=== PATIENT | female | born 1955 | race African-American/Black ===

== ENCOUNTER 2020-11-12 00:58 | Inpatient (IN) | payer OTHER ==
[~2020-11-12] VITALS: Ht 170.2 cm; Wt 89.4 kg
[~2020-11-12 00:58] MED LIST: IBUP-1957; LISI-768; LISI5TAB24 PO
--- NOTE | 2020-11-12 00:59 | NUR ---
PT AAOX4. 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 PLACED IN BED 2 ON MONITOR AND PULSE OX. AWAITING ER MD FOR EVAL AND ORDERS.
[2020-11-12 01:22] LABS: BASOPHILS # (AUTO) 0.1 K/uL (0.0-0.2); BASOPHILS % (AUTO) 1.1 % (0.0-2.0); EOSINOPHILS % (AUTO) 1.5 % (0.0-6.0); HEMATOCRIT 44 % (33-45); HEMOGLOBIN 14.2 g/dL (11.5-14.8); LYMPHOCYTES # (AUTO) 2.4 K/uL (0.8-4.8); LYMPHOCYTES % (AUTO) 44.9 % (20.0-44.0); MEAN CORPUSCULAR HGB CONC 32 g/dl (31.0-36.0); MEAN CORPUSCULAR VOLUME 87 fL (82-100); MONOCYTES # (AUTO) 0.7 K/uL (0.1-1.30); MONOCYTES % (AUTO) 12.8 % (2.0-12.0); NEUTROPHILS # (AUTO) 2.2 K/uL (1.8-8.9); NEUTROPHILS % (AUTO) 39.7 % (43.0-81.0); PLATELET COUNT (AUTO) 301 K/uL (150-450); RED BLOOD CELL COUNT(AUTO) 5.05 MIL/uL (4.0-5.2); WHITE BLOOD COUNT (AUTO) 5.4 K/uL (4.3-11.0)
--- NOTE | 2020-11-12 01:22 | NUR ---
BLOOD WORK COLLECTED, SENT TO LAB.
--- NOTE | 2020-11-12 01:28 | NUR ---
PT WAS TAKEN TO CT
[2020-11-12 01:40] LABS: CALCIUM, SERUM 8.8 mg/dL (8.5-10.1); CARBON DIOXIDE 26 mmol/L (21-32); CHLORIDE 106 mmol/L (98-107); CREATININE 1.1 mg/dL (0.6-1.3); GLUCOSE 115 mg/dL (74-106); POTASSIUM 3.6 mmol/L (3.5-5.1); SODIUM SERUM 141 mmol/L (136-145); UREA NITROGEN, BLOOD 15 mg/dL (7-18)
--- NOTE | 2020-11-12 01:42 | NUR ---
BACK FROM CT
[2020-11-12 01:45] LABS: ALANINE AMINOTRANSFERASE 17 U/L (12-78); ALBUMIN 3.5 g/dL (3.4-5.0); ALKALINE PHOSPHATASE 93 U/L (46-116); ASPARTATE AMINOTRANSFERASE 16 U/L (15-37); BILIRUBIN,DIRECT 0.1 mg/dL (0.0-0.2); BILIRUBIN,TOTAL 0.3 mg/dL (0.2-1.0); TOTAL PROTEIN, SERUM 7.6 g/dL (6.4-8.2)
[2020-11-12 01:47] LABS: CHOLESTEROL 219 mg/dL (<200); HDL CHOLESTEROL 57 mg/dL (40-60); LDL 135 mg/dL (0-99); TRIGLYCERIDES 103 mg/dL (30-150)
--- NOTE | 2020-11-12 02:24 | NUR ---
COVID SWAB COLLECTED AND SENT TO LAB
--- NOTE | 2020-11-12 02:41 | NUR ---
PT AWARE OF BEING ADMITTED, ER MD SPOKE TO PT/ PT WILL BE ADMITTED FOR FURTHER TESTING.
--- NOTE | 2020-11-12 02:54 | NUR ---
CALLED HOUSE SUP FOR TELE BED
[2020-11-12] MEDS ORDERED: NITROGLYCERIN 0.4 MG/TAB BOTTLE SL PRN (03:00)
[2020-11-12] MEDS ORDERED: Z GUARD REMEDY 2 OZ OINT TP PRN (03:00)
[2020-11-12] MEDS ORDERED: ACETAMINOPHEN 325 MG TABLET PO PRN (03:00)
[2020-11-12] MEDS ORDERED: ZOLPIDEM TARTRATE 5 MG TABLET PO PRN (03:00)
[2020-11-12] MEDS ORDERED: MAGNESIUM HYDROXIDE 30 ML UDC PO PRN (03:00)
[2020-11-12] MEDS ORDERED: ASPIRIN 81 MG TAB.CHEW PO ONE (03:00)
[2020-11-12] MEDS ORDERED: ONDANSETRON HCL/PF 4 MG/2 ML VIAL IVP PRN (03:00)
[2020-11-12] MEDS ORDERED: MAG HYDROX/AL HYDROX/SIMETH 30 ML UDC PO PRN (03:00)
--- NOTE | 2020-11-12 03:05 | NUR ---
REPORT GIVEN TO RN FOR GABRIEL.
[2020-11-12 03:43] VITALS: BP 132/89
--- NOTE | 2020-11-12 03:43 | NUR ---
MANAGER BEVERAGE ADMITTING NOTE PT TRANSPORTED BY 2 NURSES ON STRETCHER TO UNIT FROM ED AT THIS TIME. RECEIVED REPORT FROM MARV RN @ED . AOX4. PT SR @ 63. PT ABLE TO COMMUNICATE NEEDS. NO SOB NOTED, NO C/O PAIN AT THIS TIME, NO S/S OF ANY APPARENT DISTRESS NOTED. RESPIRATIONS EVEN AND UNLABORED, ACTIVE BOWEL SOUNDS AUSCULTATED THROUGHOUT, ABDOMEN IS NON DISTENDED AND NON VERBAL. SKIN IS INTACT, WARM TO TOUCH. CAPILLARY REFILL <3 SECONDS, PULSES PRESENT BILATERALLY, GOOD CIRCULATION NOTED. IV ACCESS NOTED IN RAC G#20, INTACT, PATENT AND FLUSHING WELL. PTS BELONGINGS ACCOUNTED FOR, AND KEPT AT PT'S BEDSIDE PER PT REQUEST. ASPIRATION AND SAFETY PRECAUTIONS IN PLACE AND MAINTAINED AT ALL TIMES. BED IN LOWEST POSITION, SIDE RAILS UPX2, TABLE AND CALL LIGHT WITHIN REACH. WILL CONTINUE PLAN OF CARE.
--- NOTE | 2020-11-12 03:50 | NUR ---
PT TRANSFERED PER ACLS PROTOCOL
[2020-11-12 05:03] VITALS: BP 132/89
--- NOTE | 2020-11-12 06:00 | NUR ---
RN CLOSING NOTE PT RESTING IN BED COMFORTABLY AT THIS TIME, EASY TO AROUSE. PT IS STABLE AT THIS TIME. ALL NEEDS, AND CARE ADMINISTERED ANTICIPATED PER ORDER; SAFETY PRECAUTIONS IN PLACE AND MAINTAINED AT ALL TIMES. BED IN LOWEST LOCKED POSITION, HOB ELEVATED, SIDE RAILS UP X2. CALL LIGHT AND TABLE WITHIN REACH. WILL ENDORSE TO DAY SHIFT NURSE FOR GABRIEL.
--- NOTE | 2020-11-12 07:12 | NUR ---
RN OPENING NOTE PT RESTING IN BED COMFORTABLY AT THIS TIME, EASY TO AROUSE. PT IS STABLE AT THIS TIME. PT DENIES PAIN AT THIS TIME SAFETY PRECAUTIONS IN PLACE AND MAINTAINED AT ALL TIMES. BED IN LOWEST LOCKED POSITION, HOB ELEVATED, SIDE RAILS UP X2. CALL LIGHT AND TABLE WITHIN REACH AND ANSWERED PROMPTLY
[2020-11-12 08:00] VITALS: BP 127/75
[2020-11-12] MEDS ORDERED: METOPROLOL TARTRATE INJ 5 MG/5 ML AMPUL IVP PRN (09:00)
[2020-11-12] MEDS ORDERED: ASPIRIN 81 MG TAB.CHEW PO SCH (09:00)
[2020-11-12] MEDS ORDERED: ATORVASTATIN 10 MG TABLET PO SCH (09:00)
[2020-11-12] MEDS ORDERED: LISINOPRIL (5MG) 5 MG TABLET PO SCH (09:00)
[2020-11-12] MEDS ORDERED: IV NS 0.9% 500 ML IV ONE (09:00)
[2020-11-12] MEDS ORDERED: NITROGLYCERIN 0.4 MG/TAB BOTTLE SL ONE ×2 (09:00)
[2020-11-12] MEDS ORDERED: IOHEXOL-350 100 ML VIAL IV ONE (09:02)
[2020-11-12] MEDS ORDERED: NITROGLYCERIN 0.4 MG/TAB BOTTLE ONE (09:02)
[2020-11-12] MEDS ORDERED: IV NS 0.9% 250 ML IV ONE (09:03)
[2020-11-12] MEDS ORDERED: CT SWABBABLE VALVE TRANS SET 1 EA INFUS.SET MC ONE (09:03)
[2020-11-12] MEDS ORDERED: IV NS 0.9% 0 ML IV ONE (09:04)
[2020-11-12] MEDS: METOPROLOL TARTRATE INJ 5 MG/5 ML AMPUL IVP PRN ×4 (09:10→09:25)
[2020-11-12] MEDS ORDERED: METOPROLOL TARTRATE INJ 5 MG/5 ML AMPUL ONE (09:19)
[2020-11-12] MEDS: METOPROLOL TARTRATE 50 MG TABLET PO SCH ×2 (09:29→21:20)
[2020-11-12] MEDS: ASPIRIN 81 MG TAB.CHEW PO SCH (09:30)
--- NOTE | 2020-11-12 09:33 | NUR ---
consented to CTA heart ; denies CP or SOB; denies taking OHA had a total of Metoprolol 5 mg IVPx 4 doses; NTG 0.4 mg SL ; tolerated procedure; VSS ; report given to floor RN Edward; sent back to floor via wheelchair
[2020-11-12 20:00] VITALS: BP_SYST 109; BP_SYST 110; BP_DIAS 73
--- NOTE | 2020-11-12 20:00 | NUR ---
RN NOTES Received patient awake on bed a/ox4, ambulatory , SB on tele monitor HR-[id number], patient is already complaining of itchiness on her face, but it's tolerable, patient stated that she feels itchy after her CT Angio -will monitor it , call light within reach, siderailsupx2, will continue to monitor
--- NOTE | 2020-11-12 23:10 | NUR ---
RN NOTES Patient complained that her face is swollen, noticed patient face is slightly swollen, informed Patricia Copeland and she ordered Benadryl 50mg po x1, order noted and carried out
[2020-11-12] MEDS ORDERED: diphenhydrAMINE HCL 50 MG CAPSULE PO ONE (23:30)
[2020-11-13] VITALS: BP 113/86
--- NOTE | 2020-11-13 02:53 | NUR ---
RN NOTES patient was asking when in her next dose of Benadryl, pt stated that her itchiness was resolved but noticed her eyes are still slightly swollen, got an order of Benadryl 25mg po Q6 HRS. PRN form Patricia Copeland, order noted and carried out
[2020-11-13 04:00] VITALS: BP 98/62
[2020-11-13 05:00] VITALS: BP 98/62
[2020-11-13 06:31] LABS: BASOPHILS % (AUTO) 0.9 % (0.0-2.0); EOSINOPHILS % (AUTO) 1.4 % (0.0-6.0); HEMATOCRIT 44 % (33-45); HEMOGLOBIN 14.2 g/dL (11.5-14.8); LYMPHOCYTES # (AUTO) 1.5 K/uL (0.8-4.8); MEAN CORPUSCULAR HGB CONC 33 g/dl (31.0-36.0); MEAN CORPUSCULAR VOLUME 88 fL (82-100); MONOCYTES # (AUTO) 0.4 K/uL (0.1-1.30); MONOCYTES % (AUTO) 9.1 % (2.0-12.0); NEUTROPHILS # (AUTO) 2.8 K/uL (1.8-8.9); NEUTROPHILS % (AUTO) 57.6 % (43.0-81.0); PLATELET COUNT (AUTO) 289 K/uL (150-450); RED BLOOD CELL COUNT(AUTO) 4.98 MIL/uL (4.0-5.2); WHITE BLOOD COUNT (AUTO) 4.8 K/uL (4.3-11.0)
[2020-11-13] MEDS: diphenhydrAMINE HCL 25 MG CAPSULE PO PRN ×2 (06:46→15:35)
--- NOTE | 2020-11-13 06:46 | NUR ---
RN NOTES Patient eyes still swollen but denies itchiness-Benadryl 25mg po given as ordered. Endorsed to dayswift nurse
[2020-11-13 06:58] LABS: ALBUMIN 3.3 g/dL (3.4-5.0); BILIRUBIN,TOTAL 0.4 mg/dL (0.2-1.0); CALCIUM, SERUM 9.1 mg/dL (8.5-10.1); CREATININE 0.9 mg/dL (0.6-1.3); MAGNESIUM 2.5 mg/dL (1.8-2.4); PHOSPHORUS 4.4 mg/dL (2.5-4.9); POTASSIUM 4.1 mmol/L (3.5-5.1); TOTAL PROTEIN, SERUM 7.2 g/dL (6.4-8.2)
--- NOTE | 2020-11-13 07:40 | NUR ---
TELE/RN OPENING NOTES RECEIVED PATIENT ON BED AWAKE ALERT AND ORIENTED X4. PATIENT IS IN ROOM AIR SATURATING WELL. PATIENT IN NO APPARENT RESPIRATORY DISTRESS NOTED AT THIS TIME. TELE MONITOR READING SINUS RHYTHM 75 BPM. NO COMPLAINED OF PAIN AT THIS TIME. WILL CONTINUE TO MONITOR.
[2020-11-13] MEDS ORDERED: methylPREDNISolone DOSPAK(4MG) 1 PACK TAB.DS.PK PO ONE (08:30)
[2020-11-13] MEDS: methylPREDNISolone SOD SUCC 125 MG/2ML VIAL IV SCH (08:36)
[2020-11-13] MEDS: ASPIRIN 81 MG TAB.CHEW PO SCH (08:36)
--- NOTE | 2020-11-13 10:41 | NUR ---
MS/RN NOTES VTE SCORE 3 DR. SAINZ WAS AWARE AND VERBALIZED NO NEED FOR CHEMICAL PROPHYLAXIS. NOTED AND CARRIED OUT.
--- NOTE | 2020-11-13 18:57 | NUR ---
MS/RN OPENING NOTES PATIENT IS ON BED AWAKE ALERT AND ORIENTED X4. PATIENT IS ON ROOM AIR SATURATING WELL. PATIENT IN NO APPARENT RESPIRATORY DISTRESS NOTED. NO COMPLAINED OF PAIN AT THIS TIME. IV ACCESS AT RIGHT AC #20 G PATENT AND INTACT. SEEN AND EXAMINED BY MD WITH ORDERS MADE AND CARRIED OUT. ALL DUE MEDICATIONS WAS GIVEN. SAFETY PRECAUTIONS WAS IN PLACED. BED IN LOWEST POSITION AND LOCKED. AIR CREW SUPERVISOR UP X2. CALL LIGHT WITHIN REACH. WILL ENDORSED TO JACQUARD [employer] HEDDLES TIER FOR GABRIEL.
--- NOTE | 2020-11-13 19:44 | NUR ---
MS RN OPENING NOTE PATIENT A/OX4; ABLE TO MAKE NEEDS KNOWN. TOLERATING ROOM AIR WELL WITH NO SOB. WILL CONTINUE PAIN ASSESSMENT. RAC #20G S/L; PATENT AND INTACT. SAFETY MEASURES IN PLACE: BED TO LOWEST LOCKED POSITION, SIDE RAILS UPX2, CALL LIGHT WITHIN EASY REACH, BED ALARM ON. PATIENT IN STABLE CONDITION WILL CONTINUE PLAN OF CARE.
[2020-11-13 20:34] VITALS: BP 118/71
--- NOTE | 2020-11-14 06:06 | NUR ---
MS RN CLOSING NOTE PATIENT A/OX4; ABLE TO MAKE NEEDS KNOWN. TOLERATING ROOM AIR WELL WITH NO SOB. DENIES ITCHINESS OR RASHES. RAC #20G S/L; PATENT AND INTACT. SAFETY MEASURES IN PLACE: BED TO LOWEST LOCKED POSITION, SIDE RAILS UPX2, CALL LIGHT WITHIN EASY REACH, BED ALARM ON. ALL NEEDS MET AT THIS TIME. PATIENT IN STABLE CONDITION WILL CONTINUE PLAN OF CARE.
[2020-11-14 06:23] LABS: BASOPHILS % (AUTO) 0.3 % (0.0-2.0); EOSINOPHILS % (AUTO) 0.1 % (0.0-6.0); HEMATOCRIT 45 % (33-45); HEMOGLOBIN 14.5 g/dL (11.5-14.8); LYMPHOCYTES # (AUTO) 1.3 K/uL (0.8-4.8); LYMPHOCYTES % (AUTO) 14.8 % (20.0-44.0); MEAN CORPUSCULAR HGB CONC 33 g/dl (31.0-36.0); MEAN CORPUSCULAR VOLUME 88 fL (82-100); MONOCYTES # (AUTO) 0.8 K/uL (0.1-1.30); NEUTROPHILS # (AUTO) 6.6 K/uL (1.8-8.9); NEUTROPHILS % (AUTO) 75.8 % (43.0-81.0); PLATELET COUNT (AUTO) 296 K/uL (150-450); RED BLOOD CELL COUNT(AUTO) 5.09 MIL/uL (4.0-5.2); WHITE BLOOD COUNT (AUTO) 8.7 K/uL (4.3-11.0)
[2020-11-14 06:39] LABS: CALCIUM, SERUM 9.3 mg/dL (8.5-10.1); POTASSIUM 4.2 mmol/L (3.5-5.1)
[2020-11-14] MEDS ORDERED: ASPI-1169 PO (07:30)
--- NOTE | 2020-11-14 07:48 | NUR ---
MS/RN OPENING NOTE RECEIVED PATIENT IN BED, AWAKE, A/OX4; ABLE TO MAKE NEEDS KNOWN. TOLERATING ROOM AIR WELL WITH NO SOB. DENIES ITCHINESS OR RASHES. RAC #20G S/L; PATENT AND INTACT. SAFETY MEASURES IN PLACE: BED TO LOWEST LOCKED POSITION, SIDE RAILS UPX2, CALL LIGHT WITHIN EASY REACH, BED ALARM ON. WILL CONTINUE TO MONITOR PATIENT.
[2020-11-14 07:50] VITALS: BP 123/79
[2020-11-14] MEDS: methylPREDNISolone SOD SUCC 125 MG/2ML VIAL IV SCH (08:36)
[2020-11-14] MEDS: ASPIRIN 81 MG TAB.CHEW PO SCH (08:36)
--- NOTE | 2020-11-14 10:32 | NUR ---
MS/GAS CUTTER NOTES PATIENT IS MEDICALLY STABLE AND DR. SAINZ ORDERED DISCHARGE TO HOME FOR THIS PATIENT. PATIENT IS ALERT AND ORIENTED X4, ABLE TO MAKE NEEDS KNOWN. AMBULATORY. NO PAIN REPORTED . ON ROOM AIR. DISCHARGE INSTRUCTIONS GIVEN TO THE PATIENT AND WAS ABLE TO VERBALIZED UNDERSTANDING. ALL BELONGINGS ACCOUNTED FOR. IV ACCESS TAKEN OUT. PATIENT LEFT HOSPITAL VIA PRIVATE CAR.
== END 2020-11-14 10:34 | disposition home or self-care (01) | DRG 811 ==
LOC: ER 01:04 → TELE 02:59 → MED 11-13 09:38
PROVIDERS: ADMIT Family Medicine; ATTEND Family Medicine
DX: T78.3XXA Angioneurotic edema, initial encounter (principal); E11.65 Type 2 diabetes mellitus with hyperglycemia; R07.9 Chest pain, unspecified; I10 Essential (primary) hypertension; E78.00 Pure hypercholesterolemia, unspecified; Z90.710 Acquired absence of both cervix and uterus; Z79.899 Other long term (current) drug therapy; Z83.3 Family history of diabetes mellitus; Z86.73 Personal history of transient ischemic attack (TIA), and cerebral infarction without residual deficits; Z86.2 Personal history of diseases of the blood and blood-forming organs and certain disorders involving the immune mechanism; T44.5X5A Adverse effect of predominantly beta-adrenoreceptor agonists, initial encounter; Y92.9 Unspecified place or not applicable
CPT/HCPCS: 36415; 70450-TC; 71045-TC; 75574; 80048-TC; 80053-TC; 80061-TC; 80076-TC; 83735-TC; 84100-TC; 84484-TC; 85025-TC; 85730-TC; 87081-TC; C9803; G0378; J2930; J3490; J7040; J7050; Q0163; Q9967